=== PATIENT | female | born 1995 | race Caucasian/White ===

== ENCOUNTER 2016-12-31 17:15 | Emergency (ER) | payer OTHER ==
[~2016-12-31] VITALS: Ht 157.5 cm; Wt 47.6 kg
--- NOTE | 2016-12-31 17:15 | NUR ---
BIB SELF, C/O OF PAINFUL URINATION, NAD NOTED, A/O X4, AMBULATORY, WITH STEADY GAIT, VSS, URINE COLLECTED AND SENT TO LAB
[2016-12-31 17:38] VITALS: BP 103/70
--- NOTE | 2016-12-31 17:56 | NUR ---
Sherri sal in ED - 12/31/16 at 1758 by ANOOP BIB SELF, C/O OF PAINFUL URINATION. URINE COLLECTED AND SENT TO LAB.
[2016-12-31 17:58] LABS: APPEARANCE,URINE CLEAR (CLEAR); BILIRUBIN,URINE NEGATIVE (NEGATIVE); BLOOD, URINE 3+ Ery/uL (NEGATIVE); COLOR,URINE YELLOW (YELLOW); KETONES,URINE NEGATIVE (NEGATIVE); LEUKOCYTE ESTERASE ,URINE 2+ (NEGATIVE); NITRITE, URINE NEGATIVE (NEGATIVE); PROTEIN,URINE NEGATIVE (NEGATIVE); UGLUCOSE NEGATIVE (NEGATIVE); UROBILINOGEN,URINE 0.2 EU/dL (0.2)
[2016-12-31 18:11] LABS: WBC,URINE 21-50 /HPF (0-3)
[2016-12-31 18:12] LABS: BACTERIA,URINE Few /HPF (None Seen)
[2016-12-31 18:13] LABS: PREGNANCY TEST URINE QUAL NEGATIVE (NEGATIVE); SQUAMOUS EPITHELIAL CELL,UR Few /HPF (None Seen)
== END 2016-12-31 18:28 | disposition home or self-care (01) ==
LOC: ER 17:20
DX: N39.0 Urinary tract infection, site not specified (principal); Z88.0 Allergy status to penicillin; Z88.1 Allergy status to other antibiotic agents
CPT/HCPCS: 81000-TC; 84703-TC; 87086-TC; 87186-TC; A4606; Z7610

== ENCOUNTER 2017-04-08 18:35 | Emergency (ER) | payer OTHER ==
[~2017-04-08] VITALS: Ht 162.6 cm; Wt 43.1 kg
[2017-04-08 18:54] VITALS: BP 113/83
--- NOTE | 2017-04-08 19:14 | NUR ---
21 Y/O FEMALE PLACED IN BED 6 C/O RASH ON ABDOMEN AND PELVIS FOR A MONTH.
== END 2017-04-08 20:16 | disposition home or self-care (01) ==
LOC: ER 18:39
DX: B35.4 Tinea corporis (principal); Z88.0 Allergy status to penicillin; Z88.1 Allergy status to other antibiotic agents
CPT/HCPCS: 99282; A4606; Z7610

== ENCOUNTER 2017-07-27 14:40 | Emergency (ER) | payer OTHER ==
[~2017-07-27] VITALS: Ht 157.5 cm; Wt 44.5 kg
[2017-07-27 14:44] VITALS: BP 100/67
[2017-07-27 15:27] LABS: APPEARANCE,URINE Clear (CLEAR); BILIRUBIN,URINE Negative (NEGATIVE); BLOOD, URINE Moderate Ery/uL (NEGATIVE); COLOR,URINE Yellow (YELLOW); KETONES,URINE Negative (NEGATIVE); LEUKOCYTE ESTERASE ,URINE Moderate (NEGATIVE); NITRITE, URINE Negative (NEGATIVE); PROTEIN,URINE Negative (NEGATIVE); UGLUCOSE Negative (NEGATIVE); UROBILINOGEN,URINE 0.2 EU/dL (0.2)
[2017-07-27 15:33] LABS: BACTERIA,URINE Rare /HPF (None Seen); RBC,URINE 0-3 /HPF (0-2); SQUAMOUS EPITHELIAL CELL,UR Few /HPF (None Seen); WBC,URINE 21-50 /HPF (0-3)
== END 2017-07-27 16:01 | disposition home or self-care (01) ==
LOC: ER 14:41
DX: N39.0 Urinary tract infection, site not specified (principal); N28.9 Disorder of kidney and ureter, unspecified; Z88.0 Allergy status to penicillin; Z87.440 Personal history of urinary (tract) infections
CPT/HCPCS: 81001; 84703; 87086; 87186; 99284; A4606; Z7610; 81000-TC